=== PATIENT | female | born 1990 | race Hispanic/Latino ===

== ENCOUNTER 2018-04-11 08:34 | Emergency (ER) | payer OTHER ==
[2018-04-11 09:20] LABS: Absolute Lymphocytes (CBC) 2.3 K/uL (0.7-4.9); Absolute Monocytes 0.4 K/uL (0.1-1.3); Absolute Neutrophil 3.7 K/uL (1.8-8.0); Basophils % 0.6 % (0-1.3); Eosinophils % 2.4 % (0-4.4); Hematocrit 41.5 % (36.0-45.0); Lymphocytes % 34.8 % (15.3-44.8); MPV 10.8 fL (7.6-11.3); Monocytes % 6.5 % (3.3-12.3); RBC Red Blood Cell Count 4.88 M/uL (3.86-4.86)
[2018-04-11] MEDS ORDERED: NA CHLORIDE 0.9% 1,000 ML ONE (09:24)
[2018-04-11 09:53] LABS: Urine Bacteria 20-50 /HPF (<20); Urine Culture Reflex Order REFLEXED; Urine RBC <5 /HPF (NONE SEEN)
[2018-04-11 09:55] LABS: Potassium 3.3 mmol/L (3.5-5.1)
[2018-04-11 11:52] LABS: Urine Blood TRACE (NEG); Urine Glucose NEGATIVE (NEG); Urine Protein NEGATIVE (NEG); Urine Specific Gravity 1.015 (1.005-1.030); Urine pH 8.5 (5.0-7.0)
[2018-04-11 11:53] LABS: Urine Specific Gravity 1.015 (1.005-1.030)
--- NOTE | 2018-04-11 12:14 | RAD REPORT ---
EXAM DESCRIPTION: US - Transvaginal OB - 04/11/2018 11:02 am CLINICAL HISTORY: lower abdominal pain, vaginal bleeding COMPARISON: No comparisons FINDINGS: A tiny cystic structure is seen in the fundal endometrium suspicious for an early gestatio nal sac. The shape of the sac is within normal limits for gestational age. No embryo or yolk sac seen within the sac at this stage. The placenta is not yet developed due to early gestational age. The maternal adnexa and ovaries are within normal limits. Normal Doppler blood flow was demonstrated to both ovaries. IMPRESSION: Very early IUP findings are seen. Advise followup sonography in 10-12 days.
--- NOTE | 2018-04-11 13:07 | ER ---
Nurse's Notes [facility] Name: Stella Brooks Age: 27 yrs Sex: Female : 1990 Arrival Date: 04/11/2018 Time: 08:40 Bed 20 Private MD: None, None Diagnosis: Threatened ;Urinary tract infection, site not specified Presentation: 04/11 08:55 Presenting complaint: Patient states: positive home UPT, LMP= Mar 12, vaginal bleeding, iw spotting and left abd pain since yesterday. Transition of care: patient was not received from another setting of care. Onset of symptoms was April 10, 2018. Risk Assessment: Do you want to hurt yourself or someone else? Patient reports no desire to harm self or others. Initial Sepsis Screen: Does the patient meet any 2 criteria? No. Patient's initial sepsis screen is negative. Does the patient have a suspected source of infection? No. Patient's initial sepsis screen is negative. Care prior to arrival: None. 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 - Social history:: Smoking status: Patient/guardian denies using tobacco. - Ebola Screening: : Patient negative for fever greater than or equal to 101.5 degrees Fahrenheit, and additional compatible Ebola Virus Disease symptoms Patient denies exposure to infectious person Patient denies travel to an Ebola-affected area in the 21 days before illness onset No symptoms or risks identified at this time. Screenin:00 Abuse screen: Denies threats or abuse. Nutritional screening: No deficits noted. aa5 Tuberculosis screening: No symptoms or risk factors identified. Fall Risk None identified. Assessment: 09:00 General: Appears comfortable, Behavior is calm, cooperative. Pain: Complains of pain in aa5 left lower quadrant Pain does not radiate. Pain currently is 5 out of 10 on a pain scale. Quality of pain is described as pinching, Pain began 2-3 days ago. Is intermittent. Neuro: Level of Consciousness is awake, alert, obeys commands, Oriented to person, place, time, situation. Cardiovascular: Heart tones S1 S2 present Rhythm is regular. Respiratory: Airway is patent Respiratory effort is even, unlabored, Respiratory pattern is regular, symmetrical, Breath sounds are clear bilaterally. GI: Abdomen is round non-distended, Bowel sounds present X 4 quads. Abd is soft X 4 quads Abdomen is tender to palpation in left lower quadrant Patient currently denies nausea, vomiting. : Reports vaginal bleeding that is spotty. EENT: No signs and/or symptoms were reported regarding the EENT system. Derm: Skin is pink, warm \T\ dry. Musculoskeletal: Range of motion: intact in all extremities. 10:06 Reassessment: Patient and/or family updated on plan of care and expected duration. Pain aa5 level reassessed. Patient is alert, oriented x 3, equal unlabored respirations, skin warm/dry/pink. Awaiting US. Pt ambulated to restroom. . 11:00 Reassessment: Patient and/or family updated on plan of care and expected duration. Pain aa5 level reassessed. Patient is alert, oriented x 3, equal unlabored respirations, skin warm/dry/pink. Pt to US. 12:20 Reassessment: Patient and/or family updated on plan of care and expected duration. Pain aa5 level reassessed. Patient is alert, oriented x 3, equal unlabored respirations, skin warm/dry/pink. Patient denies pain at this time. Pt back from US. 13:42 Reassessment: Patient is alert, oriented x 3, equal unlabored respirations, skin aa5 warm/dry/pink. Vital Signs: 08:59 BP 114 / 64; Pulse 81; Resp 16 S; Temp 97.5; Pulse Ox 99% on R/A; Weight 61.23 kg; iw Height 4 ft. 11 in. (149.86 cm); Pain 5/10; 09:18 BP 108 / 65; Pulse 88; Resp 18 S; Pulse Ox 100% on R/A; Pain 5/10; aa5 10:06 BP 107 / 63; Pulse 86; Resp 18 S; Pulse Ox 100% on R/A; Pain 4/10; aa5 12:30 BP 99 / 61; Pulse 87; Resp 16 S; Pulse Ox 99% on R/A; aa5 13:00 BP 102 / 61; Pulse 85; Resp 16 S; Temp 98.2(TE); Pulse Ox 99% on R/A; Pain 0/10; aa5 08:59 Body Mass Index 27.27 (61.23 kg, 149.86 cm) ED Course: 08:40 Patient arrived in ED. mr 08:40 None, None is Private Physician. mr 08:47 Anand Cunha PA is PHCP. cp 08:47 Houston Gale MD is Attending Physician. cp 08:50 Laura Musa, RN is Primary Nurse. aa5 08:57 Triage completed. iw 09:00 Arm band placed on. iw 09:00 Patient has correct armband on for positive identification. Placed in gown. Bed in low aa5 position. Call light in reach. Side rails up X 1. Pulse ox on. NIBP on. 09:00 Initial lab(s) drawn, by me, sent to lab. Inserted saline lock: 20 gauge in right aa5 antecubital area, using aseptic technique. Blood collected. 09:19 Urine collected: clean catch specimen, cloudy. 5 09:20 Urine --Ancillary (enter results) Sent. mh5 09:20 Urine Dipstick-Ancillary Sent. 5 09:20 Urine Dipstick--Ancillary (enter results) Sent. 5 09:22 No provider procedures requiring assistance completed. aa5 11:02 Transvaginal Ob In Process Unspecified. EDMS 13:06 Matt Hess MD is Referral Physician. cp 13:42 IV discontinued, intact, bleeding controlled, No redness/swelling at site. Pressure aa5 dressing applied. Administered Medications: 09:17 Drug: NS 0.9% 1000 ml Route: IV; Rate: 1 bolus; Site: right antecubital; aa5 10:06 Follow up: IV Status: Completed infusion aa5 13:38 Drug: Macrobid 100 mg Route: PO; aa5 13:38 Follow up: Response: Medication administered at discharge. aa5 13:38 Drug: Klor-Con Effervescent Tablet 50 mEq Route: PO; aa5 13:38 Follow up: Response: Medication administered at discharge. aa5 Point of Care Testing: Urine : 09:04 hCG Reading: Positive; Control Reading: Negative; iw Outcome: 13:06 Discharge ordered by . andrea 13:42 Discharged to home ambulatory. aa5 13:42 Condition: good 13:42 Discharge instructions given to patient, Instructed on discharge instructions, follow up and referral plans. medication usage, Demonstrated understanding of instructions, follow-up care, medications, Prescriptions given X 2. 13:43 Patient left the ED. aa5 Signatures: Dispatcher [employer] Suma Burciaga mr Mattie Berkowitz RN RN Laura Carlos RN RN 5 Anand Cunha PA PA cp Martinez, Maria [facility]
--- NOTE | 2018-04-11 13:07 | EDPHYS ---
Physician Documentation [facility] Name: Stella Brooks Age: 27 yrs Sex: Female : 1990 Arrival Date: 04/11/2018 Time: 08:40 Bed 20 Private MD: None, None ED Physician Houston Gale HPI: 04/11 09:05 This 27 yrs old Female presents to ER via Ambulatory with complaints of cp Vaginal Bleeding, + Preg <12wks. 09:05 The patient presents to the emergency department with abdominal pain, of the lower cp abdomen, that started yesterday, vaginal bleeding, that is light, with clots. course: care: none, Leakage of Fluid: none appreciated. Previous pregnancies: in previous pregnancies patient has had vaginal delivery. Associated signs and symptoms: Pertinent negatives: fever, vomiting. 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 - Social history:: Smoking status: Patient/guardian denies using tobacco. - Ebola Screening: : Patient negative for fever greater than or equal to 101.5 degrees Fahrenheit, and additional compatible Ebola Virus Disease symptoms Patient denies exposure to infectious person Patient denies travel to an Ebola-affected area in the 21 days before illness onset No symptoms or risks identified at this time. ROS: 09:10 Constitutional: Negative for body aches, chills, fever, poor PO intake. cp 09:10 Eyes: Negative for injury, pain, redness, and discharge. cp 09:10 ENT: Negative for drainage from ear(s), ear pain, sore throat, difficulty swallowing, difficulty handling secretions. 09:10 Cardiovascular: Negative for chest pain, edema, palpitations. 09:10 Respiratory: Negative for cough, shortness of breath, wheezing. 09:10 Abdomen/GI: Positive for abdominal pain, of the lower abdomen, Negative for vomiting, diarrhea, constipation, anorexia. 09:10 Back: Negative for pain at rest, pain with movement, radiated pain. 09:10 : Positive for vaginal bleeding, Negative for urinary symptoms, flank pain. 09:10 Skin: Negative for cellulitis, rash. 09:10 Neuro: Negative for altered mental status, headache, syncope, weakness. 09:10 All other systems are negative. Exam: 09:13 Constitutional: The patient appears in no acute distress, alert, non-toxic, well cp developed, well nourished. 09:13 Head/Face: Normocephalic, atraumatic. cp 09:13 Eyes: Periorbital structures: appear normal, Conjunctiva: normal, no exudate, no injection, Sclera: no appreciated abnormality, Lids and lashes: appear normal, bilaterally. 09:13 ENT: External ear(s): are unremarkable, Mouth: is normal, Posterior pharynx: is normal, airway is patent, no erythema, no exudate. 09:13 Chest/axilla: Inspection: normal, Palpation: is normal, no crepitus, no tenderness. 09:13 Cardiovascular: Rate: normal, Rhythm: regular, Heart sounds: murmur, not appreciated, Edema: is not appreciated, JVD: is not appreciated. 09:13 Respiratory: the patient does not display signs of respiratory distress, Respirations: normal, no use of accessory muscles, no retractions, no splinting, no tachypnea, labored breathing, is not present, Breath sounds: are clear throughout, no decreased breath sounds, no stridor, no wheezing. 09:13 Abdomen/GI: Inspection: abdomen appears normal, Bowel sounds: active, all quadrants, Palpation: soft, in all quadrants, mild abdominal tenderness, in the right lower quadrant and left lower quadrant, rebound tenderness, is not appreciated, voluntary guarding, is not appreciated, involuntary guarding, is not appreciated. 09:13 Back: CVA tenderness, is absent. 09:13 Neuro: Orientation: is normal, Mentation: is normal, Cerebellar function: is grossly normal, Motor: moves all fours, strength is normal, Sensation: is normal. 09:13 Skin: cellulitis, is not appreciated, no rash present. cp Vital Signs: 08:59 BP 114 / 64; Pulse 81; Resp 16 S; Temp 97.5; Pulse Ox 99% on R/A; Weight 61.23 kg; iw Height 4 ft. 11 in. (149.86 cm); Pain 5/10; 09:18 BP 108 / 65; Pulse 88; Resp 18 S; Pulse Ox 100% on R/A; Pain 5/10; aa5 10:06 BP 107 / 63; Pulse 86; Resp 18 S; Pulse Ox 100% on R/A; Pain 4/10; aa5 12:30 BP 99 / 61; Pulse 87; Resp 16 S; Pulse Ox 99% on R/A; aa5 13:00 BP 102 / 61; Pulse 85; Resp 16 S; Temp 98.2(TE); Pulse Ox 99% on R/A; Pain 0/10; aa5 08:59 Body Mass Index 27.27 (61.23 kg, 149.86 cm) iw MDM: 08:47 Patient medically screened. cp 10:00 Differential diagnosis: STD, threatened Ab, inevitable Ab, retained Ab, ectopic cp , early IUP, UTI. 13:05 Data reviewed: vital signs, nurses notes, lab test result(s), radiologic studies, cp ultrasound. 13:05 Counseling: I had a detailed discussion with the patient and/or guardian regarding: the cp historical points, exam findings, and any diagnostic results supporting the discharge/admit diagnosis, lab results, radiology results, the need for outpatient follow up, an OB/Gyne specialist, to return to the emergency department if symptoms worsen or persist or if there are any questions or concerns that arise at home. Response to treatment: the patient's symptoms have mildly improved after treatment, and as a result, I will discharge patient. 04/11 09:01 Order name: Quantitative Hcg; Complete Time: 10:12 04/11 10:13 Interpretation: HCGQ 2874; Reviewed. 04/11 09:01 Order name: Abo/rh Typing; Complete Time: 10:13 04/11 09:01 Order name: Basic Metabolic Panel; Complete Time: 10:12 cp 04/11 09:01 Order name: CBC with Diff; Complete Time: 10:12 04/11 13:07 Interpretation: Normal except: RBC 4.88; MCV 85.0; MCH 29.1; PLT 129. 04/11 09:13 Order name: Urine Dipstick--Ancillary (enter results) ag 04/11 09:14 Order name: Urine Dipstick-Ancillary; Complete Time: 12:51 EDMS 04/11 09:01 Order name: Urine Test (obtain specimen); Complete Time: 09:18 cp 04/11 09:15 Order name: Urine --Ancillary (enter results); Complete Time: 12:51 ag 04/11 09:20 Order name: Urine Microscopic Only; Complete Time: 10:12 mh5 04/11 09:35 Order name: US Transvaginal Ob; Complete Time: 12:51 cp 04/11 09:55 Order name: Urine Culture EDMS 04/11 09:01 Order name: IV Saline Lock; Complete Time: 09:17 cp 04/11 09:01 Order name: Labs collected and sent; Complete Time: 09:17 cp 04/11 09:01 Order name: NPO; Complete Time: 09:17 cp 04/11 09:01 Order name: Urine Dipstick-Ancillary (obtain specimen); Complete Time: 09:18 cp Administered Medications: 09:17 Drug: NS 0.9% 1000 ml Route: IV; Rate: 1 bolus; Site: right antecubital; aa5 10:06 Follow up: IV Status: Completed infusion aa5 13:38 Drug: Macrobid 100 mg Route: PO; aa5 13:38 Follow up: Response: Medication administered at discharge. aa5 13:38 Drug: Klor-Con Effervescent Tablet 50 mEq Route: PO; aa5 13:38 Follow up: Response: Medication administered at discharge. aa5 Point of Care Testing: Urine : 09:04 hCG Reading: Positive; Control Reading: Negative; iw Disposition: 04/11/18 13:06 Discharged to Home. Impression: Threatened , Urinary tract infection, site not specified. - Condition is Stable. - Discharge Instructions: Threatened Miscarriage, Pelvic Rest, Vaginal Bleeding During , First Trimester, [id number]. - Prescriptions for Vitamin 27- 0.8 mg Oral Tablet - take 1 tablet by ORAL route once daily; 60 tablet. Macrobid 100 mg Oral Capsule - take 1 capsule by ORAL route every 12 hours for 7 days; 14 capsule. - Medication Reconciliation Form, Thank You Letter, Antibiotic Education, Prescription Opioid Use form. - Follow up: Matt Hess MD; When: 48 Hours; Reason: Repeat Beta-HCG (48 Hours). - Problem is new. - Symptoms have improved. Addendum: 04/22/2018 15:29 Co-signature as Attending Physician, Houston Gale MD Available for consultation at p s1 all times. . Signatures: Dispatcher [employer] EDMattie Santana RN RN iw Calderon, Audri, RN RN aa5 Anand Cunha PA PA cp Houston Gale MD MD ps1 Corrections: (The following items were deleted from the chart) 04/11 13:07 13:06 04/11/2018 13:06 Discharged to Home. Impression: Threatened . Condition cp is Stable. Forms are Medication Reconciliation Form, Thank You Letter, Antibiotic Education, Prescription Opioid Use. Follow up: Matt Hess; When: 48 Hours; Reason: Repeat Beta-HCG (48 Hours). Problem is new. Symptoms have improved. cp 13:43 13:07 04/11/2018 13:06 Discharged to Home. Impression: Threatened ; Urinary aa5 tract infection, site not specified. Condition is Stable. Discharge Instructions: Threatened Miscarriage, Pelvic Rest, Vaginal Bleeding During , First Trimester, [id number]. Prescriptions for Vitamin 27-0.8 mg Oral Tablet - take 1 tablet by ORAL route once daily; 60 tablet. and Forms are Medication Reconciliation Form, Thank You Letter, Antibiotic Education, Prescription Opioid Use. Follow up: Matt Hess; When: 48 Hours; Reason: Repeat Beta-HCG (48 Hours). Problem is new. Symptoms have improved. cp
[2018-04-11] MEDS ORDERED: NITROFURAN MACRO 100 MG CAP PO ONE (13:38)
[2018-04-11] MEDS ORDERED: POTASSIUM 25 MEQ EFFERV TAB ONE (13:38)
[2018-04-11 15:26] VITALS: BP 102/61; TEMP 98.2; O2SAT 99
== END 2018-04-11 13:43 | disposition home or self-care (01) ==
LOC: ER 08:34
DX: O20.0 Threatened abortion (principal); O23.41 Unspecified infection of urinary tract in pregnancy, first trimester; Z3A.00 Weeks of gestation of pregnancy not specified
CPT/HCPCS: 36415; 76817; 80048; 81003; 81015; 81025; 84702; 85025; 86900; 86901; 87086; 87088; 96360; 99284; J7030